=== PATIENT | female | born 2000 | race Caucasian/White ===

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

== ENCOUNTER 2018-01-18 15:10 | Emergency (ER) | END 2018-01-18 18:02 | disposition home or self-care (01) ==

== ENCOUNTER 2018-03-03 09:20 | Emergency (ER) | END 2018-03-03 12:32 | disposition home or self-care (01) ==

== ENCOUNTER 2018-04-16 11:19 | Emergency (ER) | END 2018-04-16 12:56 | disposition home or self-care (01) ==

== ENCOUNTER 2018-04-23 16:33 | Emergency (ER) | END 2018-04-23 20:12 | disposition home or self-care (01) ==

== ENCOUNTER 2018-08-14 21:41 | Emergency (ER) | payer SELFPAY ==
[~2018-08-14] VITALS: Ht 147.3 cm; Wt 48.7 kg
[~2018-08-14 21:41] MED LIST changes: +AZIT250T PO; -AZIT250T94 PO; +AZIT500T3 PO; +D-ME473S2 PO; +DICY10CA40 PO; -DICY10CA60 PO; +FAMO-96 PO; +IBUP-1561 PO; -IBUP400T22 PO; +LOPE2CAP PO; +NAPR-688 PO; +OMEP20CA16 PO; +ONDA4TAB8 PO; +PHEN118L PO; +RANI150T35 PO
[2018-08-14 21:55] VITALS: BP 113/77; PULSE 99; RESP 17; Ht 147.3 cm; Wt 48.7 kg
== END 2018-08-15 00:35 | disposition left against medical advice (07) ==
LOC: FTE 21:41
DX: Z53.21 Procedure and treatment not carried out due to patient leaving prior to being seen by health care provider (principal)